=== PATIENT | male | born 1995 | race Native Hawaiian/Other Pacific Islander ===

== ENCOUNTER 2021-10-19 10:35 | Emergency (ER) | payer OTHER ==
[~2021-10-19] VITALS: Ht 175.3 cm; Wt 65.8 kg
[2021-10-19 11:20] VITALS: BP 108/71; TEMP 98.9
== END 2021-10-19 11:20 | disposition home or self-care (01) ==
LOC: ED 10:35
DX: K04.7 Periapical abscess without sinus (principal)
CPT/HCPCS: 96372; 99283; J0696; J1885

== ENCOUNTER 2022-04-18 11:43 | Emergency (ER) | payer OTHER ==
[~2022-04-18] VITALS: Ht 180.3 cm; Wt 80.7 kg
[2022-04-18 12:51] VITALS: BP 93/63; TEMP 98.2
== END 2022-04-18 12:55 | disposition home or self-care (01) ==
LOC: ED 11:43
DX: S02.5XXA Fracture of tooth (traumatic), initial encounter for closed fracture (principal); K02.9 Dental caries, unspecified; X58.XXXA Exposure to other specified factors, initial encounter; Y92.89 Other specified places as the place of occurrence of the external cause
CPT/HCPCS: 96372; 99283; J0696; J1885